=== PATIENT | female | born 1990 | race Hispanic/Latino ===

== ENCOUNTER 2017-04-04 20:10 | Emergency (ER) | payer MEDICAID ==
[2017-04-04] MEDS ORDERED: HYDROcodone/Acetaminophen 10/325 mg Tablet ONE (20:33)
== END 2017-04-04 20:43 | disposition home or self-care (01) ==
LOC: ERS 20:10
DX: K04.7 Periapical abscess without sinus (principal); J45.909 Unspecified asthma, uncomplicated; F17.210 Nicotine dependence, cigarettes, uncomplicated
CPT/HCPCS: 99282

== ENCOUNTER 2017-04-23 10:51 | Emergency (ER) | payer MEDICAID ==
[2017-04-23 11:44] LABS: #Eosinphils 0.2 thou/uL (0.0-0.7); #Lymphocytes 1.7 thou/uL (1.20-3.40); #Monocytes 0.7 thou/uL (0.11-0.59); #Neutrophils 4.2 thou/uL (1.40-6.50); %Basophils 0.6 % (0.0-1.0); %Eosinophils 3.5 % (0.0-10.0); %Lymphocytes 25.3 % (21.0-51.0); %Monocytes 9.8 % (0.0-10.0); Hematocrit 41.3 % (36.0-47.0); Mean Platelet Volume 6.8 fL (7.4-10.4); Red Blood Cell (RBC) Count 4.47 mill/uL (4.20-5.40); White Blood Cell (WBC) Count 6.9 thou/uL (4.8-10.8)
[2017-04-23 12:08] LABS: ALT (SGPT) 34 U/L (8-55); AST (SGOT) 22 U/L (5-34); Alkaline Phosphatase 95 U/L (40-150); Anion Gap 10 mmol/L (10-20); BUN (Urea Nitrogen) 10 mg/dL (7.0-18.7); Bilirubin, Total 0.3 mg/dL (0.2-1.2); Calc. Creatinine Clearance 0 mL/min (70-130); Calcium 8.8 mg/dL (7.8-10.44); Carbon Dioxide 24 mmol/L (22-29); Chloride 107 mmol/L (98-107); Estimated GFR-MDRD Greater than 90; Globulin 3.6 g/dL (2.4-3.5); Protein, Total 7.1 g/dL (6.0-8.3)
[2017-04-23] MEDS ORDERED: guaiFENesin 100 MG/5 ML UDCUP PO SCH (12:15)
[2017-04-23] MEDS ORDERED: Ibuprofen 800 MG TAB ONE (12:42)
[2017-04-23] MEDS ORDERED: Acetaminophen 500 MG TAB ONE (12:46)
== END 2017-04-23 12:52 | disposition home or self-care (01) ==
LOC: ERS 10:51
DX: O99.511 Diseases of the respiratory system complicating pregnancy, first trimester (principal); J06.9 Acute upper respiratory infection, unspecified; J45.909 Unspecified asthma, uncomplicated; O99.611 Diseases of the digestive system complicating pregnancy, first trimester; K02.9 Dental caries, unspecified; O99.331 Smoking (tobacco) complicating pregnancy, first trimester; F17.210 Nicotine dependence, cigarettes, uncomplicated; Z3A.01 Less than 8 weeks gestation of pregnancy
CPT/HCPCS: 36415; 80053; 84702; 85025; 99283

== ENCOUNTER 2017-05-02 14:16 | Emergency (ER) | payer MEDICAID ==
[2017-05-02 14:55] LABS: #Eosinphils 0.2 thou/uL (0.0-0.7); #Lymphocytes 2.9 thou/uL (1.20-3.40); #Monocytes 0.7 thou/uL (0.11-0.59); #Neutrophils 7.7 thou/uL (1.40-6.50); %Basophils 0.4 % (0.0-1.0); %Eosinophils 1.8 % (0.0-10.0); %Lymphocytes 25.3 % (21.0-51.0); %Monocytes 5.7 % (0.0-10.0); Hematocrit 39.8 % (36.0-47.0); Mean Platelet Volume 6.6 fL (7.4-10.4); Red Blood Cell (RBC) Count 4.45 mill/uL (4.20-5.40); White Blood Cell (WBC) Count 11.5 thou/uL (4.8-10.8)
[2017-05-02 15:18] LABS: ALT (SGPT) 18 U/L (8-55); AST (SGOT) 13 U/L (5-34); Alkaline Phosphatase 99 U/L (40-150); Anion Gap 7 mmol/L (10-20); BUN (Urea Nitrogen) 9 mg/dL (7.0-18.7); Bilirubin, Total 0.4 mg/dL (0.2-1.2); Calc. Creatinine Clearance 0 mL/min (70-130); Calcium 9.6 mg/dL (7.8-10.44); Carbon Dioxide 29 mmol/L (22-29); Chloride 104 mmol/L (98-107); Estimated GFR-MDRD Greater than 90; Globulin 3.9 g/dL (2.4-3.5); Lipase 33 U/L (8-78); Protein, Total 8.2 g/dL (6.0-8.3)
[2017-05-02 15:20] LABS: Bilirubin Negative (Negative); Blood, Urine Moderate (Negative); Glucose, Urine (Dipstick) Negative (Negative); Ketone, Urine Negative (Negative); Nitrite Negative (Negative); Protein, Urine (Dipstick) Negative (Neg-Trace)
[2017-05-02 15:23] LABS: Bacteria/HPF Rare-Few HPF (None Seen); Hyaline Casts/LPF 0-3 HYALINE CAST LPF (0-3 Hyaline); Squamous Epithelial 0-3 HPF (0-3); WBC/HPF 0-3 HPF (0-3)
--- NOTE | 2017-05-02 17:15 | ULT ---
PELVIC ULTRASOUND WITH DOPPLER: (Transabdominal, transvaginal, meadows scale, color flow and spectral doppler) 05/02/17 HISTORY: Positive test and vaginal bleeding. FINDINGS: The uterus measures 11 x 6 x 6.6 cm. The right ovary measures 2.6 x 1.8 x 2.1 cm and the left ovary measures 2.7 x 2.2 x 2.9 cm. Flow is demonstrated to both ovaries. A single intrauterine gestation is seen with measurements corresponding to an estimated gestational age of 5 weeks, 6 days. The crown-rump length measures 0.40 cm, gestational sac diameter is 0.82 cm and yolk sac diameter is 0.22 cm. There is activity noted but was not measureable. There is so me free fluid in the cul-de-sac. No definite subchorionic hemorrhage is seen. IMPRESSION: Single intrauterine gestation of 5 weeks, 6 days estimated gestational age with cardiac movement but unmeasureable heart rate. Recommend correlation with serial serum beta HCGs and followup ultr asound. POS: [facility]
== END 2017-05-02 18:52 | disposition home or self-care (01) ==
LOC: ERS 14:16
DX: O20.0 Threatened abortion (principal); O23.591 Infection of other part of genital tract in pregnancy, first trimester; N76.0 Acute vaginitis; B96.89 Other specified bacterial agents as the cause of diseases classified elsewhere; O99.511 Diseases of the respiratory system complicating pregnancy, first trimester; J45.909 Unspecified asthma, uncomplicated; O99.331 Smoking (tobacco) complicating pregnancy, first trimester; Z3A.08 8 weeks gestation of pregnancy
CPT/HCPCS: 36415; 76856; 80053; 81003; 81015; 83690; 84702; 85025; 86900; 86901; 87480; 87491; 87510; 87591; 87660; 99406

== ENCOUNTER 2017-05-04 12:31 | Emergency (ER) | payer MEDICAID ==
[2017-05-04] MEDS ORDERED: Azithromycin 250 MG TAB ONE (15:09)
--- NOTE | 2017-05-04 15:29 | ULT ---
ULTRASOUND PELVIC ULTRASOUND TRANSVAGINAL DOPPLER DUPLEX: DATE: 05-04-17 HISTORY: 26-year-old female with first trimester vaginal bleeding and decreasing serum Beta HCG levels. TECHNIQUE: Transabdominal transducer used to evaluate intrapelvic contents using the urinary bladder as an acou stic window. Endovaginal transducer used to visualize intrapelvic contents in greater detail. Color flow Doppler and Pulsed Doppler spectral waveform analysis of ovaries. FINDINGS: Uterus: 10 x 6 x 8 cm Endometrial stripe: 1.1 cm (11 mm) Right ovary: 3 x 2 x 2 cm Left ovary: 3 x 2 x 2.5 cm No uterine leiomyoma is identified. Blood flow is demonstrated in both ovaries. No ovarian cyst (defined as 2 cm or greater) is identified. No free fluid is in the cul-de-sac. The previously demonstrated intrauterine gestational sac on the 05-02-17 ultrasound is no longer vis ualized. IMPRESSION: 1. Normal pelvic ultrasound. 2. Status post spontaneous first trimester (miscarriage). samantha POS: [facility]
== END 2017-05-04 15:28 | disposition home or self-care (01) ==
LOC: ERS 12:31
DX: O03.9 Complete or unspecified spontaneous abortion without complication (principal); S70.02XA Contusion of left hip, initial encounter; S30.0XXA Contusion of lower back and pelvis, initial encounter; A56.01 Chlamydial cystitis and urethritis; W01.0XXA Fall on same level from slipping, tripping and stumbling without subsequent striking against object, initial encounter; Y92.002 Bathroom of unspecified non-institutional (private) residence as the place of occurrence of the external cause
CPT/HCPCS: 36415; 76856; 84702; 93976

== ENCOUNTER 2018-02-15 17:56 | Day surgery (SDC) | payer OTHER ==
[2018-02-15 18:38] VITALS: BP 117/71; TEMP 98.9
[2018-02-15 18:39] VITALS: BMI 40.9
--- NOTE | 2018-02-15 19:16 | PDOC.LDHP ---
Labor and Delivery H&P Chief complaint: other (Pelvic pressure) HPI: Patient of an OBGYN outside of town Here visiting family Has OBGYN follow up Seen in triage Reason for eval (@ 1915): pelvic pressure at 33 weeks 6 days Patient is a (Term 2 2, 4, living 4) at 33 weks 6 days here for pelvic pressure. Her last delivery was a CS and she is scheduled for a repeat CS and BTL at another facility. here for pressure. No burning on urination, no LOF, no VB, no recent sex, no trauma. Unsure if contractions. Good FM. She states her OB gave her procardia to take but she is not taking it. No HAs now. Review of systems: complete ROS completed and as per HPI Current gestational age (weeks): 33 (6 days) Due date: 03/30/18 Dating criteria: last menstrual period Grav: 8 Para: 4 OB History Details: AB4, CS X 1 Current complications: other (Obesity, BMI 40.9 (denies GDM)) Past Medical History: migraines, asthma, depression Current medications: pre-coni vitamins, other (Was given procardia but not taking it) Previous surgical history: low tranverse CS Allergies/Adverse Reactions: Allergies Allergy/AdvReac Type Severity Reaction Status Date / Time No Known Allergies Allergy Verified 02/15/18 18:37 - Physical Exam Vital signs reviewed and normal: yes (BP 117/71) General: NAD Lungs: CTAB Abdomen: gravid (Obese, but soft, NT) Extremeties: no edema FHT: category 1 [place] contractions every: none - Assessment pelvic pressure at 33 weeks 6 days; obesity; Hx depression and asthma; CS X 1 in past - Plan Plan: observation in L&D (We will oberve oin L&D. NST reactive with baseline 130s, mod variability. I have ordered an FFN and cervical length sono (no recent sex). No evidence LOF grossly or by HX.)
[2018-02-15 19:55] LABS: FFN Internal QC Analyzer PASS (PASS); FFN Internal QC Cassette PASS (PASS); Fetal Fibronectin Negative (Negative)
--- NOTE | 2018-02-15 20:14 | PDOC.EVN ---
Event Note - Event Note Event Note: FFN negative CX 3.08 on sono OK for outpatient care
--- NOTE | 2018-02-15 20:41 | ULT ---
LIMITED OBSTETRICAL ULTRASOUND FOR CERVICAL LENGTH: 02/15/18 INDICATION: . FINDINGS: Clinical age provided: 33 weeks, 6 days. Cervical length was 3.09 cm. heart tones were measured at 145 beats per minute. The fetus appeared in a breech presentation on the provided images. IMPRESSION: Cervical length of 3.09 cm. POS: [facility]
== END 2018-02-15 20:21 | disposition home or self-care (01) ==
LOC: L&D/OP 17:56
PROVIDERS: ATTEND Obstetrics & Gynecology
DX: O99.89 Other specified diseases and conditions complicating pregnancy, childbirth and the puerperium (principal); R10.2 Pelvic and perineal pain; O99.213 Obesity complicating pregnancy, third trimester; E66.9 Obesity, unspecified; Z68.41 Body mass index [BMI] 40.0-44.9, adult; Z3A.33 33 weeks gestation of pregnancy
CPT/HCPCS: 59025; 76815; 82731; 99283

== ENCOUNTER 2018-02-27 16:15 | Observation (INO) | payer OTHER ==
[2018-02-27 17:20] VITALS: BMI 43.7
--- NOTE | 2018-02-27 17:38 | PDOC.FPROB ---
FMR OB H&P: HPI - History of Present Illness Chief Complaint: low back pain History of Present Illness: 27 yo HF @ 35.4 wks GA by LMP and 1T US p/w low back pain, ctx q10 min , and possible LOF since yesterday. Pt recently moved to [place] and visited [facility] for first time yesterday. Pt was noted to be breech presentation and 2 cm dilated on SVE. Pt notes that she had threatened PTL in January, received steroids , and was placed on bed rest by PCP. +FM, denies VB. Last delivery was via CS 2/2 breech presentation in 2015. Hx of polyhydramnios during second trimester, BV s/p treatment, chlamydia 10/2017 s/p treatment Hx of syphilis in 2013. Primary Care Physician: [facility] Dr. Tej Adair FMR OB H&P: Current - Care : 8 Para: [id number] Gestational age: 35.4 Due date: 03/30/2018 Dating Criteria: LMP - OB Labs Blood type: unknown RH: unknown Antibody Screen: unknown Gonorrhea: negative Chlamydia: positive Pap Smear: NILM FMR OB H&P: History - Past Medical History PMH: 1. migraines 2. mild intermittent asthma 3. depression - OB History OB History: 1. sp AB x4 2. CS 2/2 breech x1 2015 3. PTL x2 at 31 and 32 wks - Social History Social History: Denies A/T, she has used marijuana in the past. FMR OB H&P: Medications - Current Allergies/Adverse Reactions: Allergies Allergy/AdvReac Type Severity Reaction Status Date / Time No Known Allergies Allergy Verified 02/15/18 18:37 FMR OB H&P: Physical Exam - Physical Exam General: NAD, awake, alert and oriented HEENT: normocephalic and atraumatic, EOMI, MMM Neck: FROM, no JVD Abdomen: soft, gravid, non-tender Psychiatric: intact recent and remote memory, good judgement and insight - Pelvic Exam Vulva: no discharge, no blood SVE: 3 FMR OB H&P: Results - Labs Lab results: Amniosure is negative FMR OB H&P: A/P - Problem List (1) Intrauterine Current Visit: Yes Status: Acute Code(s): Z34.90 - ENCNTR FOR SUPRVSN OF NORMAL , UNSP, UNSP TRIMESTER Assessment and Plan: This is a 27 yo female at 35.6 by LMP with a PMH of Asthma R/O labor -Pt. is having contractions q 8-15 minutes. Amnisure was negative. GBS pending from clinic. SVE at 1800 was 2/20/-2. Yesterday her check at clinic was 2/60/- 3. We have ordered an OB ultrasound, results pending. We have drawn but not sent FFN if needed. We will continue monitoring FHTs. We will continue checking for cervical changes. Asthma -Continue home meds, avoid hemabate in setting Discussion: Date/Time: 02/27/181732 This H&P was discussed with [] and [] who agree with the above documentation and plan. Attending Addendum - Attending Addendum Date/Time: 02/27/182210 I personally evaluated the patient and discussed the management with Dr. Contreras I agree with the History, Examination, Assessment and Plan documented above with any addition or exceptions noted below- 27 yo LAF @35 weeks presented c/o ctx and possible LOF. (+) FM. POBHx significant for 2 deliveries (31 and 32 weeks) and 2 term deliveries. H/O C/S x 1 for breech. Afebrile VSS. SVE 1.5/ thick/high. FHTs category 1. [place]- ctx q5-6 minutes. BPP 8/8 with BON=17. Cervical length 3.8-4 cm. Breech presentation. Amnisure- negative. A/P: 1) contractions- no cervical change since here in L&D but continuing to painfully contract. Will place in observation and continue IVF. Pain medications as needed. Suspect dehydration due to high specific gravity on U/A and dark color.
[2018-02-27 17:39] LABS: Amnisure Test No Membranes Rupture (No Rupture)
[2018-02-27 17:40] LABS: Amnisure Internal Control QC ACCEPTABLE (ACCEPTABLE)
[2018-02-27 17:46] LABS: Bilirubin Small (Negative); Blood, Urine Negative (Negative); Clarity CLEAR (Clear); Glucose, Urine (Dipstick) Negative (Negative); Leukocyte Negative (Negative); Nitrite Negative (Negative); Protein, Urine (Dipstick) Negative (Neg-Trace); Specific Gravity, Urine 1.033 (1.002-1.036)
[2018-02-27] MEDS ORDERED: Lactated Ringer's 1,000 ML IV SCH (18:45)
[2018-02-27] MEDS ORDERED: Sodium Chloride 0.9% 1,000 ML IV SCH (20:45)
--- NOTE | 2018-02-27 20:51 | ULT ---
ULTRASOUND BIOPHYSICAL PROFILE: 02/27/18 HISTORY: Possible labor. COMPARISON: Ultrasound dated 02/15/18. FINDINGS: Single viable intrauterine with heart rate of 160 beats per minute. Amniotic fluid in dex is 17.5. The placenta is anterior and position is breech. Biophysical profile score is 8/8 according to the technologist. Cervical length is approximately 3.8 cm and is closed. IMPRESSION: Biophysical profile score of 8/8. POS: [facility]
[2018-02-27] MEDS: Lactated Ringer's 1,000 ML IV SCH (22:14)
[2018-02-27] MEDS ORDERED: Ondansetron HCl/PF 4 MG/2 ML Vial IVP PRN (22:22)
[2018-02-27] MEDS ORDERED: Promethazine HCl 25 MG/ML VIAL IM PRN (22:22)
[2018-02-27] MEDS: Butorphanol Tartrate 1 MG/ML VIAL SLOW IVP PRN (22:43)
[2018-02-27] MEDS ORDERED: Betamet Acet/Betamet Na Ph 30 MG/5 ML VIAL IM SCH (23:00)
[2018-02-27 23:31] LABS: Hemoglobin 10.4 g/dL (12.0-16.0); Mean Corpuscular HGB CONC 35.7 g/dL (32.0-36.0); Mean Corpuscular Volume 86.9 fL (78.0-98.0); Mean Platelet Volume 6.8 fL (7.4-10.4); Platelet Count 224 thou/uL (130-400); RBC Distribution Width 13.2 % (11.5-14.5); Red Blood Cell (RBC) Count 3.35 mill/uL (4.20-5.40)
[2018-02-28 00:30] LABS: Syphilis Antibody Index 21.28 S/CO (<1.00 Non-Reactive)
[2018-02-28] MEDS: Butorphanol Tartrate 1 MG/ML VIAL SLOW IVP PRN ×2 (00:52→03:49)
[2018-02-28 01:08] LABS: HBSAg Index 0.17 S/CO (0-0.99); Hep B Surf Ag Non-Reactive S/CO (NonReactive)
--- NOTE | 2018-02-28 01:24 | PDOC.EVN ---
Event Note - Event Note Event Note: Patient reports ctx getting stronger again. Denies any LOF. (+) FM Afebrile BP 142/80 SVE 1/thick/-3 @2200 and 0100 FHTs- Category 1 [place]- ctx q 4-6 minutes A/p: IUP @ 35 1/7 weeks with ctx- no cervical change and patient appeared to have some relief earlier with the pain medication. Second dose just now given. Continue to monitor.
[2018-02-28 02:58] VITALS: TEMP 98.3
[2018-02-28] MEDS: Lactated Ringer's 1,000 ML IV SCH (03:51)
--- NOTE | 2018-02-28 06:10 | PDOC.OBTPN ---
R OB Triage PN:Sub - Interval History Chief Complaint: Low back pain Interval History: Still having some abdominal pressure, no other complaints FMR OB Triage PN:Obj - Maternal Vital signs: BP: [] HR: [73] RR: [20] Tmax: [98.3] Pox: []% on [] Wt: [] - Heart Tones Baseline: 140 Variability: moderate Acceleration: absent Deceleration: absent [place] contractions every: No contraction pattern, contractions have spaced out overnight - Pain Management Pain scale: 4 Intervention: oral medication (Stadol) R OB Triage PN:Exam - Physical Exam General: NAD, awake, alert and oriented HEENT: EOMI, MMM Neck: FROM, no JVD Chest: non-tender to palpation, no lesions Heart: RRR, normal S1/S2, no murmurs/rubs/gallops General: CTAB, no respiratory distress, good air movement Abdomen: soft, gravid, non-tender, bowel sound present Musculoskeletal: pulses present, FROM in all four extremities Skin: good tugor, capillary refill <2 seconds Psychiatric: good judgement and insight, normal mood and affect - Pelvic Exam SVE: Last check / FMR OB Triage PN:Data - Labs Lab results: Laboratory Results - last 24 hr 02/27/18 02/27/18 02/27/18 17:00 17:00 23:23 WBC RBC Hgb Hct MCV MCH MCHC RDW Plt Count MPV Urine Color YFN Urine Clarity CLEAR Urine pH 6.0 Ur Specific [place] 1.033 Urine Protein Negative Urine Glucose (UA) Negative Urine Ketones Negative Urine Blood Negative Urine Nitrite Negative Urine Bilirubin Small H Urine Urobilinogen 4.0 H Ur Leukocyte Esterase Negative Amnio Swab Test No Membranes Rupture Hep Bs Antigen Non-Reactive Blood Type Antibody Screen 02/27/18 02/27/18 23:23 23:23 WBC 10.0 RBC 3.35 L Hgb 10.4 L Hct 29.1 L MCV 86.9 MCH 31.0 MCHC 35.7 RDW 13.2 Plt Count 224 MPV 6.8 L Urine Color Urine Clarity Urine pH Ur Specific [place] Urine Protein Urine Glucose (UA) Urine Ketones Urine Blood Urine Nitrite Urine Bilirubin Urine Urobilinogen Ur Leukocyte Esterase Amnio Swab Test Hep Bs Antigen Blood Type A POSITIVE Antibody Screen NEGATIVE R OB Triage PN:A/P - Problem List (1) Intrauterine Status: Acute Code(s): Z34.90 - ENCNTR FOR SUPRVSN OF NORMAL , UNSP, UNSP TRIMESTER Assessment and Plan: This is a 27 yo female at 35.6 by LMP with a PMH of Asthma R/O labor -Pt. is having contractions q 8-15 minutes. Amnisure was negative. GBS pending from clinic. SVE at 0100 was 1/thick/-3. Two days ago, her check at clinic was 2 /60/-3. OB ultrasound showed BPP of 8/8, BON of 17.5, and a cervical length of 3.8. We will continue monitoring FHTs. We will continue checking for cervical changes. Overnight, pt. had increased rate of contractions, however they have spaced out and have no patter at this time. We will continued to PO/IV hydrate and monitor. These findings are reassuring that she is not in latent labor. Asthma -Continue home meds, avoid hemabate in setting Disposition: Home in 1-2 days if she is still improving and after a second dose of steroids Discussion: Date/Time: 02/28/18 0608 This H&P was discussed with [Ben] and [Jack] who agree with the above documentation and plan. Attending Addendum - Attending Addendum Date/Time: 02/28/18 182 I personally evaluated the patient and discussed the management with Dr. Bennett I agree with the History, Examination, Assessment and Plan documented above with any addition or exceptions noted below. Pt doing well this morning. Reports no contractions or pain. [place] quiescent. FHT reassuring. No decels. Accels present D/C to home this morning with strict precautions. Pt got rescue dose of steroids last night. As she has completed full course already during this a second dose is not necessary.
[2018-02-28 10:57] LABS: Syphilis Antibody REACTIVE (Nonreactive)
--- NOTE | 2018-02-28 11:28 | PDOC.EVN ---
Event Note - Event Note Event Note: Pt was reevaluated this AM with attending physician. Pt notes she feels well and endorses less pain/ctx compared to yesterday. VSS. FHT shows category 1 strip with no regular contraction pattern. SVE unchanged at 08/29/-2 this AM. Review of records shows that pt received full dose of steroids earlier in in January 2018. Pt shows no signs or symptoms of imminent delivery and there is no indication to give stress dose or repeat full dose of steroids at this time. Management discussed with pt. Stable for discharge home at this time. Pt already has follow up scheduled for 03/05/18 at [facility]. Return precautions discussed.
== END 2018-02-28 11:00 | disposition home health service (06) ==
LOC: L&D/OP 16:15 → L&D 02-28 01:52
PROVIDERS: ADMIT Family Medicine; ATTEND Family Medicine
DX: O47.03 False labor before 37 completed weeks of gestation, third trimester (principal); O32.1XX0 Maternal care for breech presentation, not applicable or unspecified; O99.513 Diseases of the respiratory system complicating pregnancy, third trimester; J45.20 Mild intermittent asthma, uncomplicated; O99.343 Other mental disorders complicating pregnancy, third trimester; F32.9 Major depressive disorder, single episode, unspecified; O99.353 Diseases of the nervous system complicating pregnancy, third trimester; G43.909 Migraine, unspecified, not intractable, without status migrainosus; Z3A.35 35 weeks gestation of pregnancy
CPT/HCPCS: 36415; 51701; 76819; 81003; 84112; 85027; 86593; 86780; 86850; 86900; 86901; 87340; 96361; 96372; 96374; 96376; 99285; G0378; J0595; J0702

== ENCOUNTER 2018-03-06 21:21 | Day surgery (SDC) | payer OTHER ==
[2018-03-06 22:27] VITALS: TEMP 98.1; BMI 42.8
--- NOTE | 2018-03-06 22:47 | PDOC.FPROB ---
FMR OB H&P: HPI - History of Present Illness Chief Complaint: Contractions History of Present Illness: 27 yo at 36.4 by LMP/reported 1T sono who presents with contractions since earlier today. They were initially infrequent then around 8pm she noted them to feel approximately 5 minutes apart. She denies any LOF, VB or discharge. She is feeling baby move between ctx. Primary Care Physician: Tej Adair MD FMR OB H&P: Current - Care : 8 Para: 2234 Gestational age: 36.4 Due date: 03/30/2018 Dating Criteria: LMP/reported 1T sono Course/Complications: Threatened PTL, s/p steroids and mg per review of records, most recent dose of steroids < 2 weeks ago FMR OB H&P: History - Past Medical History PMH: 1. Asthma 2. PTL x2 3. prior C/S x1 for breech and ROM 4. Chlamydia this s/p tx (no NILDA found) 5. Syphilis in 2013 s/p tx - OB History OB History: See [facility] records for more detail 1. 2016 SAB 5 wk 2. 2016 SAB 6 wk 3. 2015 31w, ROM, C/S for breech 4. 2013 5. 2010 32w PTL 6. 2009 SAB 6 wk 7. 2009 37w Hx syphilis in 2013, s/p tx Hx chlamydia this , s/p tx, no NILDA found - Surgical History Sx History: C/S x1 (2015) - Social History Social History: Denies t/a/d - Family History Family History: FHx DM FMR OB H&P: Medications - Current Home Medications: Medication Instructions Recorded Confirmed Type Pnv No.95/Ferrous Fum/Folic AC 1 each PO DAILY 03/06/18 03/06/18 History [ Vitamin Tablet] Allergies/Adverse Reactions: Allergies Allergy/AdvReac Type Severity Reaction Status Date / Time No Known Allergies Allergy Verified 02/15/18 18:37 FMR OB H&P: ROS - Review of Systems General: denies: fever/chills, weight/appetite/sleep changes Respiratory: denies: cough, shortness of breath Gastrointestinal: reports: abdominal pain. denies: nausea, vomiting Genitourinary (Female): denies: dysuria, hematuria FMR OB H&P: Vital Signs - Maternal Vital signs: Vital Signs - First Documented Temp Pulse Resp BP Pulse Ox 98.1 F 80 18 123/71 100 03/06/18 22:15 03/06/18 22:15 03/06/18 22:15 03/06/18 22:15 03/06/18 22:15 - Heart Tones Baseline: 120 Variability: moderate Acceleration: present Deceleration: absent Category: category 1 [place] contractions every: symptomatically q5-7, none on toco FMR OB H&P: Physical Exam - Physical Exam General: NAD HEENT: normocephalic and atraumatic Chest: other (symmetrical chest expansion, no retractions) Heart: RRR (faint systolic flow murmur 2/5) General: CTAB, no respiratory distress Abdomen: soft, gravid, non-tender Skin: no rash, good tugor, capillary refill <2 seconds Psychiatric: good judgement and insight, normal mood and affect - Pelvic Exam Vulva: normal hair distribution SVE: Presentation: vertex Estimated Weight: 7 lbs FMR OB H&P: A/P - Problem List (1) Intrauterine Current Visit: No Status: Acute Code(s): Z34.90 - ENCNTR FOR SUPRVSN OF NORMAL , UNSP, UNSP TRIMESTER Disposition: 27 yo @ 36.4 by LMP/reported 1T sono 1. contractions - SVE unchanged from last week - PO hydration and monitor - Recheck in 2 hours - Last BMZ < 2 weeks ago, no indication to re-dose 2. Late transfer of care - Records incomplete - GBS performed at [facility] last week - Will request records DEIRDRE - Will need to draw repeat labs if not obtained and in labor 3. H/o C/S - Vertex presentation - Does not desire to TOLAC - Plan for repeat C/S if in labor 4. H/o PTL x2 - No 17-ohp this per prior provider 5. Chlamydia this , s/p tx - NILDA tonight 6. Hx syphilis - Last titer 1:8 - Will recheck if in labor 7. Asthma - Asymptomatic and not using inhaler - No hemabate in labor 8. PP contraception - Desires tubal, can assist with arrangement 9. NILM pap Discussion: Date/Time: 03/06/182238 This H&P was discussed with Dr. Chappell who agrees with the above documentation and plan.
[2018-03-06 23:06] VITALS: BP 128/71
--- NOTE | 2018-03-07 00:41 | PDOC.LDPN ---
Labor & Delivery Progress Note - Subjective Subjective: comfortable - Objective Vital signs reviewed and normal: yes General: resting Uterine fundus: non tender Dilation: 1 Effacement: 25% (20) Station: -3 FHT: category 1 [place] contractions every: 5-10, none on monitor - Assessment (1) Intrauterine Code(s): Z34.90 - ENCNTR FOR SUPRVSN OF NORMAL , UNSP, UNSP TRIMESTER Current Visit: No Status: Acute Plan: other -: 27 yo @ 36.5 by LMP/reported 1T sono 1. contractions - SVE unchanged from last week - Continue PO hydration, return precautions given - Last BMZ < 2 weeks ago, no indication to re-dose 2. Late transfer of care - Records incomplete - GBS performed at [facility] last week - Will request records DEIRDRE - Will need to draw repeat labs if not obtained and returns in labor 3. H/o C/S - Vertex presentation - Does not desire to TOLAC - Plan for repeat C/S if in labor or at 39 weeks 4. H/o PTL x2 - No 17-ohp this per prior provider 5. Chlamydia this , s/p tx - NILDA sent tonight 6. Hx syphilis - Last titer 1:8 - Will recheck if in labor 7. Asthma - Asymptomatic and not using inhaler - No hemabate in labor 8. PP contraception - Desires tubal, can assist with arrangement D/C home and f/u at [facility] at schedule appointment. Return precautions and kick count instructions given.
[2018-03-10 01:43] LABS: Chlamydia by PCR Not Detected (NotDetected); GC by PCR Not Detected (NotDetected)
== END 2018-03-07 00:55 | disposition home health service (06) ==
LOC: L&D/OP 21:21
PROVIDERS: ATTEND Family Medicine
DX: O60.03 Preterm labor without delivery, third trimester (principal); O98.813 Other maternal infectious and parasitic diseases complicating pregnancy, third trimester; O99.513 Diseases of the respiratory system complicating pregnancy, third trimester; J45.909 Unspecified asthma, uncomplicated; Z3A.36 36 weeks gestation of pregnancy
CPT/HCPCS: 36415; 87491; 87591; 99283

== ENCOUNTER 2018-03-08 06:46 | Inpatient (IN) | payer OTHER ==
[2018-03-08 07:35] VITALS: BMI 42.8
--- NOTE | 2018-03-08 08:18 | PDOC.FPROB ---
FMR OB H&P: HPI - History of Present Illness Chief Complaint: vaginal bleeding History of Present Illness: 27 yo @ 36.5 wks by LMP/reported 1T sono who presents due to vaginal bleeding this morning. She was here last night for CTX. She is currently feeling CTX every 5-10 minutes. She reports that she had a fall yesterday around 1230pm and she has continued back and buttock pain from this fall. She noted decreased movement this morning but states she feels baby move now. She reports having intercourse on Monday. She is currently not having active bleeding and did not note blood on her underwear while changing. She denies headache, vision changes, SOB, chest pain, or lower extremity swelling. Primary Care Physician: Tej Adair MD FMR OB H&P: Current - Care : 8 Para: 2234 Gestational age: 36.6 Due date: 03/30/2018 Dating Criteria: LMP/Reported 1T sono Course/Complications: Threatened PTL, s/p steroids and mg per review of records, most recent dose of steroids < 2 weeks ago - OB Labs Blood type: unknown RH: unknown Chlamydia: positive (treated in September 2017) GBS: unknown FMR OB H&P: History - Past Medical History PMH: asthma, intermittent high BPs - OB History OB History: 1. 2016 SAB 5 wks 2. 2016 SAB 6 wk 3. 2015 31w, ROM, C/s for breech 4. 2013 5. 2010 32 w PTL 6. 2009 SAB 6 wk 7. 2009 37w Hx syphilis in 2013, s/p tx Hx chlamydia this , s/p tx, no NILDA found - Surgical History Sx History: previous c/s 2015 - Family History Family History: FH DM FMR OB H&P: Medications - Current Home Medications: Medication Instructions Recorded Confirmed Type Pnv No.95/Ferrous Fum/Folic AC 1 each PO DAILY 03/06/18 03/06/18 History [ Vitamin Tablet] Allergies/Adverse Reactions: Allergies Allergy/AdvReac Type Severity Reaction Status Date / Time No Known Allergies Allergy Verified 02/15/18 18:37 FMR OB H&P: ROS - Review of Systems General: denies: fever/chills, weight/appetite/sleep changes, night sweats, fatigue Eyes: denies: eye pain, vision changes, double vision, scotomas, floaters ENT: denies: nasal congestion, rhinorrhea Cardiovascular: denies: chest pain, palpitation, edema Respiratory: denies: cough, congestion, shortness of breath Gastrointestinal: denies: indigestion, bloating, cramping Genitourinary (Female): reports: vaginal bleeding, contractions. denies: incontinence, dysuria, hematuria, polyuria, vaginal discharge, vaginal pain Musculoskeletal: denies: pain, stiffness, tenderness Integumentary: denies: itching, rash Psychological: denies: depression, anxiety FMR OB H&P: Vital Signs - Heart Tones Baseline: 145 Variability: moderate Acceleration: present Deceleration: absent Category: category 1 [place] contractions every: irritability but no ctx FMR OB H&P: Physical Exam - Physical Exam General: NAD, awake, alert and oriented HEENT: normocephalic and atraumatic, EOMI, MMM, grossly normal vision, grossly normal hearing Neck: supple, FROM Chest: non-tender to palpation Heart: RRR, normal S1/S2, no murmurs/rubs/gallops, pulses present General: CTAB, no respiratory distress, good air movement Abdomen: soft, gravid, non-tender, bowel sound present Musculoskeletal: FROM in all four extremities Skin: no rash Psychiatric: normal mood and affect FMR OB H&P: A/P - Problem List (1) Intrauterine Current Visit: No Status: Acute Code(s): Z34.90 - ENCNTR FOR SUPRVSN OF NORMAL , UNSP, UNSP TRIMESTER Disposition: 27 yo @ 36.4 by LMP/reported 1T sono here due to vaginal bleeding. Found to be in breech presentation. Taking back for today. Vaginal Bleeding - SVE unchanged from last week. Checked on Monday at 2/20/-3. - BPP 02/14, no signs of previa or abruption - Last check today at 1000 was 350/-3 - Last BMZ < 2 weeks ago, no indication to re-dose Late transfer of care - Records incomplete - GBS performed at [facility] last week. We have requested records - Will need to draw repeat labs if not obtained and in labor H/o C/S - yamilex breech presentation - Does not desire to TOLAC - Plan is to take back for H/o PTL x2 - No 17-ohp this per prior provider Chlamydia this , s/p tx - NILDA tonight Hx syphilis - Last titer 1:8 - Will recheck if in labor Asthma - Asymptomatic and not using inhaler - No hemabate in labor PP contraception - Desires tubal, can assist with arrangement NILM pap DISPO: Plan is for today. Will continue to monitor. This H&P was discussed with Dr. Saunders who agrees with the above documentation and plan. Discussion: Date/Time: 03/08/18813 This H&P was discussed with [] and [] who agree with the above documentation and plan. Attending Addendum - Attending Addendum Date/Time: 03/08/18 4580 I personally evaluated the patient and discussed the management with Dr. Alcantara & Kevin I agree with the History, Examination, Assessment and Plan documented above with any addition or exceptions noted below.
[2018-03-08] MEDS ORDERED: Ondansetron HCl/PF 4 MG/2 ML Vial IVP PRN ×3 (11:28→13:32)
[2018-03-08] MEDS ORDERED: Promethazine HCl 25 MG/ML VIAL IM PRN ×2 (11:28→13:32)
[2018-03-08] MEDS ORDERED: Bicitra 30 ML UDCUP PO SCH (11:30)
[2018-03-08] MEDS ORDERED: Lactated Ringer's 1,000 ML IV SCH (11:30)
[2018-03-08] MEDS: CEFAZOLIN/Water 2 GM/20 ML SYRINGE ONE ×2 (11:32→12:06)
[2018-03-08] MEDS ORDERED: Morphine PF 1 MG/ML SYR ONE (11:33)
[2018-03-08] MEDS ORDERED: PHENYLEPHRINE-NS 100 MCG/ML 10 ML SYRINGE ONE ×2 (11:34→12:44)
[2018-03-08] MEDS ORDERED: Dexamethasone 4 mg/ml Vial ONE (11:34)
[2018-03-08] MEDS ORDERED: Oxytocin 10 UNITS/ML VIAL ONE (11:34)
[2018-03-08] MEDS ORDERED: Bupivacaine 0.75% W/DEXTROSE 8.25% 2 ML AMP ONE (11:34)
[2018-03-08] MEDS ORDERED: Lidocaine 1% PF 5 ML VIAL ONE (11:34)
[2018-03-08] MEDS ORDERED: diphenhydrAMINE 50 MG/ML VIAL ONE (11:34)
[2018-03-08] MEDS ORDERED: Ketorolac Tromethamine 30 MG/ML VIAL ONE (11:34)
--- NOTE | 2018-03-08 11:35 | PDOC.EVN ---
Event Note - Event Note Event Note: Breech orientation confirmed at bedside by Dr. Alcantara and Dr. Conley at 1128 Called [facility], GBS (-), requested records stat <Maninder Alcantara - Last Filed: 03/08/18 11:34> Attending Addendum - Attending Addendum Date/Time: 03/08/18 2011 I personally evaluated the patient and discussed the management with Dr. Alcantara I agree with the History, Examination, Assessment and Plan documented above with any addition or exceptions noted below. <Javier Saunders - Last Filed: 03/08/18 15:35>
[2018-03-08 11:37] LABS: Hemoglobin 12.1 g/dL (12.0-16.0); Mean Corpuscular Hemoglobin 30.7 pg (27.0-31.0); Mean Corpuscular Volume 85.3 fL (78.0-98.0); Mean Platelet Volume 7.3 fL (7.4-10.4); Platelet Count 241 thou/uL (130-400); Red Blood Cell (RBC) Count 3.93 mill/uL (4.20-5.40); White Blood Cell (WBC) Count 9.1 thou/uL (4.8-10.8)
--- NOTE | 2018-03-08 11:41 | HP ---
DATE OF SERVICE: 03/08/2018. TIME OF EVALUATION: Roughly 11:00 to 11:20 LOCATION: Labor and Delivery triage 8. This is a patient of the Clinic. The patient was seen first by the residents when the patient first arrived at approximately 8:30 this morning, as I was attending to 2 maternal transports. The patient has been placed in observation fo r labor observation since arrival in triage. HISTORY OF PRESENT ILLNESS: This patient is a 27-year-old G8, P 2-2-3-4 who is at 36 weeks and 6 day s by LMP, which agrees with a first trimester ultrasound. Her course is significant for rec eiving steroids and magnesium earlier on in this gestation for threatened labor, but she was released home as labor arrested. She was evaluated here for continued irregular possible contraction s. She states that at prior exam based on her verbal report was about 1 cm prior to this evaluation. PAST SURGICAL HISTORY: Significant for x1 (low transverse ). She desires a repea t . GYNECOLOGICAL HISTORY: Significant for chlamydia in September of this year which was treated but a test of cure was not found in the chart. I questioned the patient on receiving therapy and she states the rapy was taken by her. REVIEW OF SYSTEMS: Completely review of systems was checked and outside of the regular contractions is otherwise negative. OB HISTORY: Once again is a x1. PHYSICAL EXAMINATION: VITAL SIGNS: Blood pressures 120s to 130s/80s, pulse is within normal limits of 80s-90s and she is a febrile. GENERAL: She is occasionally having contraction discomfort, but is in no acute distress. ABDOMEN: Gravid, soft and nontender. PELVIC: Cervical examination reveals the cervix of 3 cm dilation, 50% effacement, -3 station. The resident's ordered a biophysical profile due to a history of a recent fall (yesterday at 12:00 no on, almost 24 hours ago) and the biophysical profile was 8/8. The BON was 15. It is important to no te that position/presentation was not stated in this report. On bedside ultrasound by the matty angela there is a suspicion that the patient was breech. The patient stated that the ultrasound techn mattie did inform her that the baby was breech during the biophysical profile. MONITORS: heart tones are in the 140s and category 1. Contractions are about every 3-5 minute s on TOCO and they are low amplitude, but this may be secondary to BMI which is greater than 30. ASSESSMENT: This is a 36 weeks and 6 days, prior x1, who desires a repeat . Afte r informed consent, the patient declined a vaginal after C section/trial of labor after C-secti on), in latent labor. PLAN: 1. I will confirm that the fetus is breech. If she is breech, and 3 cm dilated, which is a change f rom her last exam of 1 cm, we will proceed with a repeat . 2. Dr. Saunders with Family Medicine (OB track) has asked to assume care of this patient as she is a pa tient of the Clinic with Dr. Adair with the resident's providing her care. This H&P is out of courtesy as I initially took the report from the resident litigation support analyst. Dr. Saunders is s et to assume care at this point for the repeat . Prior to confirming a need for , I will confirm presentation as breech.
[2018-03-08 12:23] LABS: HBSAg Index 0.26 S/CO (0-0.99); Hep B Surf Ag Non-Reactive S/CO (NonReactive)
[2018-03-08 12:28] LABS: Syphilis Antibody Index 23.09 S/CO (<1.00 Non-Reactive)
--- NOTE | 2018-03-08 12:34 | ULT ---
LIMITED OBSTETRICAL ULTRASOUND FOR BIOPHYSICAL PROFILE: Indication: Decreased in movement with vaginal bleeding. Comparison: 02-27-18 FINDINGS: Fetus received 2/2 for movement, 2/2 for tone, 2/2 for breathing, and 2/2 for amnio tic fluid volume for a total biophysical profile of 8 out of 8. The cervix measured approximately 1.8 cm with slightly more funneling demonstrated. heart rate was 140 beats/minute. BON measured 15 cm. IMPRESSION: Biophysical profile of 8 out of 8. POS: MAGALI
[2018-03-08] MEDS ORDERED: Fentanyl 100 MCG/2 ML VIAL ONE (12:45)
[2018-03-08] MEDS ORDERED: Promethazine HCl 25 MG SUPP PR PRN (13:32)
[2018-03-08] MEDS ORDERED: Naloxone HCl 0.4 mg/ml Vial IVP PRN ×2 (13:32)
[2018-03-08] MEDS ORDERED: Naloxone HCl 0.4 mg/ml Vial IV PRN (13:32)
[2018-03-08] MEDS ORDERED: Eucerin (Mineral Oil/Petrolatum,White) 30 gm Jar TOP PRN (13:32)
[2018-03-08] MEDS ORDERED: HYDROmorphone 2 MG/ML VIAL SLOW IVP PRN (13:32)
[2018-03-08] MEDS ORDERED: Ketorolac Tromethamine 30 MG/ML VIAL IVP PRN (13:32)
[2018-03-08] MEDS ORDERED: Meperidine HCl/PF 25 MG/ML VIAL SLOW IVP PRN (13:32)
[2018-03-08] MEDS ORDERED: Communication Order-Pharmacy FS SCH (13:45)
[2018-03-08] MEDS ORDERED: CEFAZOLIN 2 GM in Sodium Chloride 0.9% 100 ML IVPB SCH (14:00)
[2018-03-08 16:25] LABS: Syphilis Antibody REACTIVE (Nonreactive)
[2018-03-08] MEDS ORDERED: Lanolin Ointment 7 GM TUBE TOP PRN (16:42)
[2018-03-08] MEDS ORDERED: Misoprostol 200 MCG TAB PR PRN (16:42)
[2018-03-08] MEDS ORDERED: Adacel (T-DAP) 0.5 ML VIAL IM ONE (16:42)
[2018-03-08] MEDS ORDERED: NS / Oxytocin 40 units/1000ml 1,000 ML IV SCH (16:42)
[2018-03-08] MEDS ORDERED: Methylergonovine 0.2 MG/ML VIAL IM PRN (16:42)
--- NOTE | 2018-03-08 16:50 | OP-2 ---
DATE OF PROCEDURE: 03/08/2018 RESIDENT SURGEON: Tej Adair M.D. INSULATION NOZZLEMAN SURGEONS: Maninder Alcantara M.D., Ruth Brown M.D. ATTENDING SURGEON: Javier Saunders M.D. PROCEDURE: Repeat low transverse section. ANESTHESIA: Spinal. QUANTITATIVE BLOOD LOSS: 450 mL PREOPERATIVE DIAGNOSES: 1. intrauterine in labor. 2. History of labor. 3. Breech presentation. 4. Late transfer of care. 5. Chlamydia during , status post treatment. POSTOPERATIVE DIAGNOSES: 1. intrauterine , delivered. 2. History of labor. 3. Breech presentation. 4. Late transfer of care. 5. Chlamydia during , status post treatment. INDICATIONS: Ms. Glover is a 27-year-old G8, P2-2-3-4 at 36.6 weeks by LMP and confirmed with first trimester ultrasound and a history of labor, who presented to Labor and Delivery with complaint of contractions. Infant was noted to be in breech presentation at this time. Given the malpresentation and history of prior , the decision was made to proceed with section. PROCEDURE IN DETAIL: The patient provided informed consent after risks, benefits and alternatives were explained. She received preoperative antibiotics of cefazolin 2 grams IV. She was taken to the OR and spinal anesthesia was initiated. She was placed in supine position with left lateral tilt and prepped and draped in the usual sterile fashion. A Pfannenstiel incision was made with a scalpel, which was sharply carried down to the level of fascia, which was sharply nicked. The fascial incision was extended sharply curved Pierson scissors in the superior lateral fashion. Superior and inferior edges of the rectus muscles were elevated with Maddie clamps and the underlying rectus muscle was bluntly and sharply resected. The rectus muscles were divided digitally and retracted manually. Peritoneum was entered bluntly and retracted manually. Rudi O retractor was then placed. The uterovesicular reflection was noted along the lower uterine segment and a bladder flap was created to lower the reflection. Lower uterine segment was identified and the child was noted to be in the breech position. A clean scalpel was used to create a lower uterine segment score. The uterus was entered bluntly using Yankauer suction tip in the midline and the hysterotomy was extended manually in the caudal-cranial fashion. The was noted to be in the yamilex breech position and the hips, legs and abdomen were delivered easily. The infant's body was rotated and both shoulders were delivered without difficulty. Infant was wrapped in a moist towel and handed to Dr. Alcantara and the head was delivered with gentle traction and fundal pressure. was noted to be crying well at the time of delivery and delayed cord clamping was utilized. Cord was then cut and clamped and the was taken to the awaiting nursery team. Cord blood was collected and sent for analysis. The fluid and contents of the field were suctioned into the canister for a preplacental volume check. Placenta was then delivered with fundal pressure. The uterus was curetted with a dry lap x2. The apices of the hysterotomy were identified and the hysterotomy was closed in a running locking fashion using 1-0 Monocryl. A second 1-0 Monocryl was used in a running nonlocking fashion to create an imbricating layer. Small bleeders were noted and controlled with Bovie cautery. An Rudi O was removed and the hysterotomy was inspected one final time and noted to be hemostatic. The rectus muscles were inspected and noted to be hemostatic. Fascia was closed using 0 PDS in the running nonlocking fashion. A small defect is noted along the left apex and was closed using a seejth-ng-ldkoc stitch with 0 PDS. Subcutaneous layer was irrigated and bleeders were stopped with Bovie cautery. Number 3 plain gut suture was used to reapproximate the subcutaneous layer. Skin was closed using 4-0 Monocryl subcuticular stitch. Dermabond was applied over the incision. Counts were correct x3. The patient tolerated the procedure well and went to after routine recovery and care. COMPLICATIONS: None. FINDINGS: appropriate gestational age viable female infant with a birthweight of 6 pounds 2 ounces or 2789 grams. Apgars of 8 and 9 at 1 and 5 minutes respectively. Time of , 1237. SPECIMENS: Cord blood. Intact placenta with a 3-vessel cord was discarded. DRAINS: Rick catheter draining clear urine before and after procedure. Dr. Saunders was in the OR for the entire procedure. SAMANTHA
--- NOTE | 2018-03-08 16:50 | PDOC.EVN ---
Event Note - Event Note Event Note: patient had syphillis in the past RPR will always be positive Needs a repeat titer in 2 weeks Confirmatory tests would be positive because she has had it in the past. Will check babies RPR <Maninder Alcantara - Last Filed: 03/08/18 16:50> Attending Addendum - Attending Addendum Date/Time: 03/09/18 0825 I personally evaluated the patient and discussed the management with Dr. Alcantara I agree with the History, Examination, Assessment and Plan documented above with any addition or exceptions noted below. <Javier Saunders - Last Filed: 03/09/18 08:26>
[2018-03-08] MEDS: Ibuprofen 800 MG TAB PO SCH (17:10)
[2018-03-08] MEDS ORDERED: CEFAZOLIN/Water 2 GM/20 ML SYRINGE SLOW IVP SCH (20:00)
[2018-03-08] MEDS: diphenhydrAMINE 50 MG/ML VIAL IVP PRN (20:01)
[2018-03-08] MEDS: Docusate Calcium (SURFAK) 240 MG CAP PO SCH (20:01)
[2018-03-08] MEDS: HYDROcodone/Acetaminophen 5/325 mg Tablet PO PRN (21:46)
[2018-03-09] MEDS: diphenhydrAMINE 50 MG/ML VIAL IVP PRN (00:29)
[2018-03-09] MEDS ORDERED: Sodium Chloride 0.9% 10 ML ONE (00:37)
[2018-03-09] MEDS: HYDROcodone/Acetaminophen 5/325 mg Tablet PO PRN ×5 (00:48→22:23)
[2018-03-09] MEDS: Ibuprofen 800 MG TAB PO SCH ×4 (04:13→22:22)
[2018-03-09] MEDS: diphenhydrAMINE 25 MG CAP PO PRN ×4 (04:14→22:28)
[2018-03-09 05:41] LABS: Hemoglobin 10.2 g/dL (12.0-16.0); Mean Corpuscular HGB CONC 35.5 g/dL (32.0-36.0); Mean Corpuscular Hemoglobin 30.6 pg (27.0-31.0); Mean Corpuscular Volume 86.1 fL (78.0-98.0); Platelet Count 240 thou/uL (130-400); RBC Distribution Width 13.1 % (11.5-14.5); Red Blood Cell (RBC) Count 3.33 mill/uL (4.20-5.40); White Blood Cell (WBC) Count 15.4 thou/uL (4.8-10.8)
--- NOTE | 2018-03-09 07:39 | PDOC.PP ---
Post Progress Note Post Day #: 1 Subjective: pain controlled. breast and bottle feeding. encouraged exclusive breast feeding. Patient again confirmed she was treated for syphilis during previous but not current . PO intake tolerated: yes Flatus: yes Ambulation: yes Vital Signs (12 hours) Temp Pulse Resp BP 03/09/18 04:00 98.5 F 74 18 03/09/18 00:00 98.5 F 74 18 03/08/18 20:00 98.3 F 83 18 115/81 Weight Weight 109.769 kg - Physical Examination General: NAD Cardiovascular: no m/r/g, RRR Respiratory: clear to auscultation bilaterally, non-labored breathing Abdominal: + bowel sounds, lochia, no distention, appropriately TTP Fundus firm & at: 2 cm below umbilicus Extremities: negative homans (B) Skin: CS incision dry & intact, no rash Neurological: no gross focal deficits Psychiatric: A&Ox3, normal affect Result Diagrams: 03/09/18 05:07 Additional Labs: Post Labs Blood Type A POSITIVE 03/08/18 11:23 Hep Bs Antigen Non-Reactive S/CO (NonReactive) 03/08/18 11:23 (1) Intrauterine Code(s): Z34.90 - ENCNTR FOR SUPRVSN OF NORMAL , UNSP, UNSP TRIMESTER Status: Acute Comment: post op day 1. doing well. H&H appropriate. VSS. monitor overnight with possible d/c tomorrow depending on hospital course of baby.
[2018-03-09] MEDS: Prenatal Vitamin 1 TAB PO SCH (08:37)
[2018-03-09] MEDS: Docusate Calcium (SURFAK) 240 MG CAP PO SCH ×2 (08:37→22:22)
--- NOTE | 2018-03-09 14:19 | PDOC.EVN ---
Event Note - Event Note Event Note: Contacted [facility] and spoke with Irene in regards to patient's treatment history of syphillis and prior RPR titers. Patient was treated for syphillis with PCN x3 in 2013. Her initial RPR titer was 1:1024 with downtrending on subsequent checks. RPR stable at 1:8 since 07/17. Repeat RPR on 03/29/2016 and 09/13/17 were 1:8 confirming this and repeat RPR here in the hospital was 1:8 as well. Irene notes that they are unable to fax over records. Confirmation of this information was repeated x2 confirming dates and titer levels. Discussed with Dr. Saunders who is aware of stable titers since 07/2015. <Maikel Morales - Last Filed: 03/09/18 14:14> - Event Note Event Note: ATTENDING ADDENDUM Agree with above. Out of an abundance of caution, will TX babe with PCN IM x 1. <Javier Saunders - Last Filed: 03/10/18 10:07>
[2018-03-10] MEDS: HYDROcodone/Acetaminophen 5/325 mg Tablet PO PRN (05:58)
[2018-03-10] MEDS: Ibuprofen 800 MG TAB PO SCH (06:34)
[2018-03-10 09:02] VITALS: BP 117/58; TEMP 98.1
[2018-03-10] MEDS: Docusate Calcium (SURFAK) 240 MG CAP PO SCH (09:30)
[2018-03-10] MEDS: Prenatal Vitamin 1 TAB PO SCH (09:30)
--- NOTE | 2018-03-10 09:44 | PDOC.OBPPN ---
FMR OB PN: Subj - Interval History Hospital Day: 3 Day: 3 Chief Complaint: labor Interval History: NAD FMR OB PN: Obj - Maternal Vital signs: BP: [] HR: [] RR: [] Tmax: [] Pox: []% on [] Wt: [] - Urine output I&O: 03/09/18 03/10/18 03/11/18 06:59 06:59 06:59 Output Total 2800 Balance -2800 - Lochia Lochia: minimal - Pain Management Intervention: oral medication (pain controlled PO meds) FMR OB PN: Exam - Physical Exam General: NAD, awake, alert and oriented HEENT: PERRLA, EOMI Heart: RRR General: CTAB, no respiratory distress Abdomen: soft, gravid, fundus(cm) (umbilicus), non-tender, bowel sound present - Pelvic Exam : sutures intact, non-tender, no edema, normal lochia FMR OB PN: A/P - Problem List (1) Intrauterine Current Visit: No Status: Acute Code(s): Z34.90 - ENCNTR FOR SUPRVSN OF NORMAL , UNSP, UNSP TRIMESTER Comment: post op day 1. doing well. H& H appropriate. VSS. monitor overnight with possible d/c tomorrow depending on hospital course of baby. Assessment and Plan: Post Op day 2. Pain controlled on PO meds. Incision CDI. Plan to d/c home today w/ f/u in clinic on 03/12 Discussion: Date/Time: 03/10/18 7591 This H&P was discussed with [] and [] who agree with the above documentation and plan. Attending Addendum - Attending Addendum Date/Time: 03/10/18 1013 I personally evaluated the patient and discussed the management with Dr. Morales I agree with the History, Examination, Assessment and Plan documented above with any addition or exceptions noted below.
[2018-03-11 20:16] LABS: Chlamydia by PCR Not Detected (NotDetected); GC by PCR Not Detected (NotDetected)
== END 2018-03-10 11:20 | disposition home or self-care (01) | DRG 766 ==
LOC: L&D/OP 06:46 → L&D 11:13 → L&D-LIB 15:50 → 3SW 16:24
PROVIDERS: ADMIT Obstetrics & Gynecology; ATTEND Obstetrics & Gynecology
PROC: 10D00Z1 Extraction of Products of Conception, Low, Open Approach (ICD-10-PCS; principal; 2018-03-08)
DX: O60.14X0 Preterm labor third trimester with preterm delivery third trimester, not applicable or unspecified (principal); Z37.0 Single live birth; Z3A.36 36 weeks gestation of pregnancy; O34.211 Maternal care for low transverse scar from previous cesarean delivery; O32.1XX0 Maternal care for breech presentation, not applicable or unspecified; Z23 Encounter for immunization; Z87.42 Personal history of other diseases of the female genital tract; W18.30XA Fall on same level, unspecified, initial encounter; J45.909 Unspecified asthma, uncomplicated; O99.52 Diseases of the respiratory system complicating childbirth
CPT/HCPCS: 36415; 51702; 76815; 76819; 85027; 86593; 86780; 86850; 86900; 86901; 87340; 87491; 87591; 90715; 99285; A4216; J1100; J1200; J1885; J2001; J2274; J2405; J2590; J3010; J3490

== ENCOUNTER 2018-04-19 21:08 | Emergency (ER) | payer OTHER ==
[2018-04-19 22:22] LABS: #Eosinphils 0.2 thou/uL (0.0-0.7); #Lymphocytes 2.7 thou/uL (1.20-3.40); #Monocytes 0.7 thou/uL (0.11-0.59); #Neutrophils 4.9 thou/uL (1.40-6.50); %Basophils 0.3 % (0.0-1.0); %Eosinophils 2.6 % (0.0-10.0); %Lymphocytes 31.8 % (21.0-51.0); %Monocytes 7.7 % (0.0-10.0); %Neutrophils 57.7 % (42.0-75.0); Hemoglobin 11.8 g/dL (12.0-16.0); Mean Corpuscular HGB CONC 32.4 g/dL (32.0-36.0); Mean Corpuscular Hemoglobin 27.3 pg (27.0-31.0); Mean Corpuscular Volume 84.2 fL (78.0-98.0); Mean Platelet Volume 7.3 fL (7.4-10.4); Platelet Count 275 thou/uL (130-400); RBC Distribution Width 13.9 % (11.5-14.5); Red Blood Cell (RBC) Count 4.33 mill/uL (4.20-5.40); White Blood Cell (WBC) Count 8.4 thou/uL (4.8-10.8)
[2018-04-19 22:44] LABS: ALT (SGPT) 40 U/L (8-55); AST (SGOT) 22 U/L (5-34); Albumin 4.1 g/dL (3.5-5.0); Alkaline Phosphatase 130 U/L (40-150); Anion Gap 13 mmol/L (10-20); BUN (Urea Nitrogen) 13 mg/dL (7.0-18.7); Bilirubin, Total 0.3 mg/dL (0.2-1.2); Calc. Creatinine Clearance 0 mL/min (70-130); Calcium 9.6 mg/dL (7.8-10.44); Carbon Dioxide 23 mmol/L (22-29); Chloride 106 mmol/L (98-107); Estimated GFR-MDRD Greater than 90; Globulin 3.7 g/dL (2.4-3.5); Glucose 102 mg/dL (70-105); Potassium 3.9 mmol/L (3.5-5.1); Protein, Total 7.8 g/dL (6.0-8.3); Sodium 138 mmol/L (136-145)
[2018-04-19 22:59] LABS: Bilirubin Negative (Negative); Blood, Urine Negative (Negative); Clarity CLEAR (Clear); Glucose, Urine (Dipstick) Negative (Negative); Leukocyte Negative (Negative); Nitrite Negative (Negative); Protein, Urine (Dipstick) Negative (Neg-Trace)
[2018-04-19 23:00] LABS: Pregnancy Test - Urine (BHCG) Negative (Negative); Pregu Control Background? CLEAR/WHITE (CLR/WHITE); Pregu Control Bar Appear? YES (CONTROL BAR)
[2018-04-20] MEDS ORDERED: Adacel (T-DAP) 0.5 ML VIAL ONE (00:01)
== END 2018-04-19 23:48 | disposition home or self-care (01) ==
LOC: ERS 21:08
DX: A08.4 Viral intestinal infection, unspecified (principal); L03.032 Cellulitis of left toe; Z71.6 Tobacco abuse counseling; J45.909 Unspecified asthma, uncomplicated; F32.9 Major depressive disorder, single episode, unspecified; F17.210 Nicotine dependence, cigarettes, uncomplicated
CPT/HCPCS: 10060; 36415; 80053; 81003; 81025; 83690; 85025; 90471; 99406

== ENCOUNTER 2018-09-13 19:39 | Emergency (ER) | payer OTHER ==
[2018-09-13 20:38] LABS: #Basophils 0.1 thou/uL (0.0-0.2); #Eosinphils 0.2 thou/uL (0.0-0.7); #Lymphocytes 3.9 thou/uL (1.20-3.40); #Monocytes 0.7 thou/uL (0.11-0.59); #Neutrophils 4.2 thou/uL (1.40-6.50); %Monocytes 7.5 % (0.0-10.0); %Neutrophils 46.5 % (42.0-75.0); Hemoglobin 11.6 g/dL (12.0-16.0); Mean Corpuscular HGB CONC 33.4 g/dL (32.0-36.0); Mean Corpuscular Hemoglobin 29.4 pg (27.0-31.0); Mean Corpuscular Volume 88.2 fL (78.0-98.0); Mean Platelet Volume 7.2 fL (7.4-10.4); Platelet Count 277 thou/uL (130-400); RBC Distribution Width 15.7 % (11.5-14.5); Red Blood Cell (RBC) Count 3.95 mill/uL (4.20-5.40); White Blood Cell (WBC) Count 9.1 thou/uL (4.8-10.8)
[2018-09-13 20:58] LABS: ALT (SGPT) 14 U/L (8-55); AST (SGOT) 16 U/L (5-34); Albumin 4.2 g/dL (3.5-5.0); Alkaline Phosphatase 120 U/L (40-150); Anion Gap 10 mmol/L (10-20); BUN (Urea Nitrogen) 13 mg/dL (7.0-18.7); Bilirubin, Total 0.3 mg/dL (0.2-1.2); Calc. Creatinine Clearance 0 mL/min (70-130); Calcium 9.3 mg/dL (7.8-10.44); Carbon Dioxide 26 mmol/L (22-29); Chloride 105 mmol/L (98-107); Estimated GFR-MDRD 76; Globulin 3.7 g/dL (2.4-3.5); Glucose 97 mg/dL (70-105); Potassium 3.7 mmol/L (3.5-5.1); Protein, Total 7.9 g/dL (6.0-8.3); Sodium 137 mmol/L (136-145)
[2018-09-13 22:02] LABS: Bilirubin Small (Negative); Blood, Urine Negative (Negative); Clarity CLEAR (Clear); Glucose, Urine (Dipstick) Negative (Negative); Leukocyte Trace (Negative); Nitrite Negative (Negative); Protein, Urine (Dipstick) Negative (Neg-Trace); Specific Gravity, Urine 1.029 (1.002-1.036); pH, Urine 6.5 (5.0-9.0)
[2018-09-13 22:04] LABS: Bacteria/HPF None Seen HPF (None Seen); Hyaline Casts/LPF 0-3 HYALINE CAST LPF (0-3 Hyaline); Pathc Cast-AUWi Flag 0.54 (0-2.49)
[2018-09-13 22:50] LABS: Pregnancy Test - Urine (BHCG) Negative (Negative); Pregu Control Background? CLEAR/WHITE (CLR/WHITE); Pregu Control Bar Appear? YES (CONTROL BAR); Specific Gravity 1.029 (1.002-1.036)
[2018-09-13] MEDS ORDERED: Ondansetron PF 4 MG/2 ML Vial ONE (23:27)
[2018-09-14] MEDS ORDERED: Promethazine HCl 25 MG/ML VIAL ONE (00:26)
== END 2018-09-14 01:42 | disposition home or self-care (01) ==
LOC: ERS 19:39
DX: R55 Syncope and collapse (principal); R11.0 Nausea; J45.909 Unspecified asthma, uncomplicated; F32.9 Major depressive disorder, single episode, unspecified; F17.210 Nicotine dependence, cigarettes, uncomplicated
CPT/HCPCS: 36415; 80053; 81003; 81015; 81025; 85025; 93005; 96361; 96365; 96375; J2405; J2550